=== PATIENT | female | born 1955 | race American Indian/Alaskan Native ===

== ENCOUNTER 2019-02-16 15:40 | Emergency (ER) | payer MEDICAID ==
[2019-02-16] MEDS ORDERED: ATIVAN IM PRN (15:44)
[2019-02-16] MEDS ORDERED: HALDOL IM PRN (15:44)
--- NOTE | 2019-02-16 16:18 | Emergency Department Report ---
ED General Adult HPI - General Chief complaint: Psych Stated complaint: MH Time Seen by Provider: 02/16/19 15:43 Source: family, RN notes reviewed, old records reviewed Mode of arrival: Ambulatory Limitations: Other (patient is actively psychotic) - History of Present Illness Initial comments: This is a 63-year-old female with a history of psychosis. The patient is brought to the emergency room by a local [facility], Ms. Gloria Calvillo; [phone] As per the aforementioned local [facility], patient was seen on the street, walking, asking for cigarettes. Ms. Castro had the patient in her car, and took her to her living facility, but the patient was disorganized, yelling incomprehensibly. The patient was then brought to the emergency room for further evaluation. Initially upon arrival, the patient is yelling and screaming, and talking nonsensically. She was yelling "I have no name". The patient clearly did not exhibit decision- making capacity, and clearly met criteria for 1013 hold for presumed decompensated psychosis. The patient was medicated with Haldol and Ativan, and subsequently calmed down. She is now resting comfortably, in her stretcher, and in no acute distress. She is not able to describe exacerbating or relieving factors, or answer questions about her review of systems. -: unknown Consistency: other Improves with: other Worsens with: other Associated Symptoms: other ED Review of Systems ROS: Stated complaint: MH Other details as noted in HPI Comment: Unobtainable due to pts medical conditions ED Physical Exam - General Limitations: Other (patient actively psychotic. Yelling and screaming.) General appearance: alert, anxious - Head Head exam: Present: atraumatic, normocephalic - Eye Eye exam: Present: normal appearance, EOMI - ENT ENT exam: Present: normal exam, normal orophraynx, mucous membranes moist, normal external ear exam - Neck Neck exam: Present: normal inspection, full ROM. Absent: tenderness, meningismus - Respiratory Respiratory exam: Present: normal lung sounds bilaterally. Absent: respiratory distress - Cardiovascular Cardiovascular Exam: Present: regular rate, normal rhythm, normal heart sounds. Absent: bradycardia, tachycardia, irregular rhythm, systolic murmur, diastolic murmur, rubs, gallop - GI/Abdominal GI/Abdominal exam: Present: soft. Absent: distended, tenderness, guarding, rebound, rigid, pulsatile mass - Extremities Exam Extremities exam: Present: normal inspection, full ROM, pedal edema, other (2+ pulses noted in the bilateral upper, lower extremities. Compartments soft. No long bony tenderness. The pelvis is stable.). Absent: calf tenderness - Back Exam Back exam: Present: normal inspection, full ROM. Absent: tenderness, CVA tenderness (R), CVA tenderness (L), paraspinal tenderness, vertebral tenderness - Neurological Exam Neurological exam: Present: other (there is no facial droop. The tongue is midline. Speaking in full sentences. syntax nonsensical. 5 out of 5 strength in for 70s.) - Psychiatric Psychiatric exam: Present: agitated, anxious - Skin Skin exam: Present: warm, dry, intact, normal color. Absent: rash ED Course Vital Signs 02/16/19 17:14 Temperature 97.5 F L Pulse Rate 83 Respiratory 18 Rate Blood Pressure 103/51 [Right] O2 Sat by Pulse 94 Oximetry - Reevaluation(s) Reevaluation #1: 02/16/19 17:45 Differential diagnosis, including not limited to: Psychosis, schizophrenia, mood disorder Assessment and plan: 63-year-old female with obvious and evident psychosis. The patient is decompensated and does not exhibit decision-making capacity. The patient furthermore demonstrates evidence that she is not able to care for herself. Therefore, she is placed on a 1013. Screening laboratory studies show minimal hypokalemia, minimal hypomagnesemia. She will be given repletion of both of the aforementioned. A psychiatric consultation has been requested. A urinalysis is pending at this time. 02/16/19 17:49 Reevaluation #2: 02/16/19 19:19 Urinalysis reviewed and appreciated. Patient resting comfortably. Patient in no acute distress. Patient is medically suitable for psychiatric consultation, placement and evaluation at this time. She does not appear to have an immediate medical contraindications for psychiatric placement at this time. ED Medical Decision Making - Lab Data Result diagrams: 02/16/19 18:00 02/16/19 16:26 Vital Signs 02/16/19 17:14 Temperature 97.5 F L Pulse Rate 83 Respiratory 18 Rate Blood Pressure 103/51 [Right] O2 Sat by Pulse 94 Oximetry Lab Results 02/16/19 02/16/1902/16/19 Range/Units 16:26 16:26 16:26 Sodium 143 (137-145) mmol/L Potassium 2.7 L* (3.6-5.0) mmol/L Chloride 104.0 (98-107) mmol/L Carbon Dioxide 20 L (22-30) mmol/L Anion Gap 22 mmol/L BUN 10 (7-17) mg/dL Creatinine 0.8 (0.7-1.2) mg/dL Estimated GFR > 60 ml/min BUN/Creatinine Ratio 13 % Glucose 174 H (65-100) mg/dL Calcium 8.9 (8.4-10.2) mg/dL Magnesium (1.7-2.3) mg/dL Total Creatine Kinase (30-135) units/L Acetaminophen < 5.0 L (10.0-30.0) ug/mL Plasma/Serum Alcohol < 0.01 (0-0.07) % 02/16/19 Range/Units 16:26 Sodium (137-145) mmol/L Potassium (3.6-5.0) mmol/L Chloride (98-107) mmol/L Carbon Dioxide (22-30) mmol/L Anion Gap mmol/L BUN (7-17) mg/dL Creatinine (0.7-1.2) mg/dL Estimated GFR ml/min BUN/Creatinine Ratio % Glucose (65-100) mg/dL Calcium (8.4-10.2) mg/dL Magnesium 1.60 L (1.7-2.3) mg/dL Total Creatine Kinase 682 H (30-135) units/L Acetaminophen (10.0-30.0) ug/mL Plasma/Serum Alcohol (0-0.07) % - EKG Data -: EKG Interpreted by Co EKG shows normal: sinus rhythm Rate: normal - EKG Data 02/16/19 17:43 EKG today shows a sinus rhythm, 85 beats per minute, normal axis, QTC prolonged, left ventricular hypertrophy, nonspecific ST abnormality in the inferior leads, no endorsement of chest pain, this is not a STEMI, there is no prior EKG available for comparison. - Radiology Data Radiology results: pending, report reviewed, image reviewed Noncontrast CT scan of the brain is negative for acute disease. Critical care attestation.: If time is entered above; I have spent that time in minutes in the direct care of this critically ill patient, excluding procedure time. ED Disposition Clinical Impression: Psychosis Qualifiers: Psychosis type: other Qualified Code(s): F28 - Other psychotic disorder not due to a substance or known physiological condition Disposition: DC/TX-65 PSY HOSP/PSY UNIT Is pt being admited?: No Does the pt Need Aspirin: No Condition: Stable Referrals: PRIMARY CARE, [Primary Care Provider] - 3-5 Days
[2019-02-16 17:03] LABS: BUN/Creatinine Ratio 13; Blood Urea Nitrogen 10 mg/dL (7-17); Calcium 8.9 mg/dL (8.4-10.2); Hemolysis Index 11
--- NOTE | 2019-02-16 17:04 | Cat Scan Report ---
PROCEDURE: CT HEAD/BRAIN WO CON TECHNIQUE: Computerized tomography of the head was performed without contrast material. CT DOSE LENGTH PRODUCT: 805.4 mGycm HISTORY: Medical Clearance Psych COMPARISONS: None . FINDINGS: Skull and scalp: Normal . Paranasal sinuses: Normal . Ventricles and subarachnoid spaces: Normal . Cerebrum: No evidence of hemorrhage, acute infarction or mass . Cerebellum and brainstem: No evidence of hemorrhage, acute infarction or mass . IMPRESSION: Normal Examination . This document is electronically signed by Lionel Pascula MD., February 16 2019 06:01:52 PM ET
[2019-02-16] MEDS ORDERED: K-DUR PO ONE (17:42)
[2019-02-16 18:08] LABS: Hematocrit 31.7 % (30.3-42.9); Hemoglobin 10.9 gm/dl (10.1-14.3); Mean Corpuscular HGB Conc 34 % (30-34); Mean Corpuscular Volume 100 fl (79-97); Platelet Count 132 K/mm3 (140-440); Red Blood Count 3.16 M/mm3 (3.65-5.03); Red Cell Distribution Width 15.4 % (13.2-15.2)
[2019-02-16 19:02] LABS: Bilirubin,Urine NEG (Negative); Blood,Urine SM (Negative); Color,Urine Yellow (Yellow); Mucus,Urine 2+ /HPF
[2019-02-16 19:07] LABS: Amphetamine Screen,Urine PRESUMPTIVE NEGATIVE; Benzodiazepines Screen,Urine PRESUMPTIVE NEGATIVE; Cannabinoid Screen,Urine PRESUMPTIVE NEGATIVE; Cocaine Screen,Urine PRESUMPTIVE NEGATIVE; Methadone Screen,Urine PRESUMPTIVE NEGATIVE; Opiate Screen,Urine PRESUMPTIVE NEGATIVE
[2019-02-17] MEDS: MAG-OX PO SCH ×2 (01:00→11:18)
[2019-02-17] MEDS: K-DUR PO SCH ×2 (01:00→10:51)
[2019-02-17] MEDS ORDERED: BABY ASPIRIN ONE (01:06)
[2019-02-17] MEDS ORDERED: BABY ASPIRIN PO ONE (04:05)
[2019-02-17] MEDS ORDERED: NACL 0.9% 1000 ML IV ONE (04:26)
[2019-02-18] MEDS: MAG-OX PO SCH (11:00)
[2019-02-18] MEDS: K-DUR PO SCH (11:00)
--- NOTE | 2019-02-18 13:19 | Consultation ---
History of Present Illness - Reason for Consult Consult date: 02/18/19 Reason for consult: Mental Healt Evaluation Requesting physician: LUCI SILVESTRE - Chief Complaint Chief complaint: 'I want a cigarette" - History of Present Psychiatric Illness 63 y.o. AA art who presented to ER for bizarre behavior. The patient was brought in by a local [facility], . Gloria Calvillo; [phone]. The patient have been to this ER in the past for similar behavior. Today the patient was disorganized during the assessment. She is adamant that she want a cigarette and that's why she was brought to the ER. She was asked about her mental health overall, her responses were not logical. She would not confirm or deny AH's, but denies SI/HI's and VH's. At this time, the patient isn't a good historian. Medications and Allergies Allergies Allergy/AdvReac Type Severity Reaction Status Date / Time No Known Allergies Allergy Unverified 02/16/19 19:33 Active Meds: Active Medications Haloperidol Lactate (Haldol) 5 mg IM Q6HR PRN PRN Reason: Agitation Last Admin: 02/16/19 15:51 Dose: 5 mg Documented by: Lorazepam (Ativan) 2 mg IM Q4HR PRN PRN Reason: Agitation Last Admin: 02/16/19 15:51 Dose: 2 mg Documented by: Magnesium Oxide (Mag-Ox) 400 mg PO QDAY [facility] Stop: 03/02/19 10:01 Last Admin: 02/18/19 11:00 Dose: 400 mg Documented by: Potassium Chloride (K-Dur) 40 meq PO QDAY [facility] Stop: 03/02/19 10:01 Last Admin: 02/18/19 11:00 Dose: 40 meq Documented by: Past psychiatric history - Past Medical History Past Medical History: other (Unable to obtain ) Past Surgical History: Other (Unable to obtain ) - past Psychiatric treatment and history psychiatric treatment history: Several inpatient psy setting in the past. Unable to obtain a fam psy hx. - Social History Social history: other (Unable to obtain ) Mental Status Exam - Vital signs Last Vital Signs Temp 97.8 F 02/18/19 04:21 Pulse 88 02/18/19 04:21 Resp 20 02/18/19 04:21 BP 126/82 02/18/19 04:21 Pulse Ox 98 02/18/19 04:21 - Exam Narrative exam: MSE: Appearance: calm Behavior: poor eye contact Speech: regular rate and tone Mood: "okay" Affect: flat Thought Process: disorganized Thought Content: denies SI/HI's and VH's, delusional Motor Activity: ambulatory Cognition: A/O x3 Insight: poor Judgment: poor Results Result Diagrams: 02/16/19 18:00 02/17/19 Unknown Abnormal lab results 02/18/19 Range/Units 08:07 Total Creatine Kinase 653 H (30-135) units/L All other labs normal. Assessment and Plan Assessment and plan: Impression: Unspecified Psychosis. Today the patient is calm, but disorganized during the assessment. UDS is negative. CK is trending down. DDx: Bipolar DO with psychosis, Schizophrenia Recommendation/Plan: Continue 1013 and Zyprexa 2.5 mg PO HS for psychosis. Attempted to discuss possible metabolic side effects of Zyprexa with the patient. Dispo: The patient was referred to inpatient psy services. Staffed with Dr Andrews Arias.
[2019-02-19 08:17] VITALS: BP 141/57
--- NOTE | 2019-02-19 10:10 | Progress Note ---
Subjective - Reason for Consult Consult date: 02/19/19 Reason for consult: Psychiatry Follow-up - Chief Complaint Chief complaint: '"I want something to smoke" 63 y.o. AA female who presented to ER for bizarre behavior. Today the patient was calm, but preoccupied during the assessment. The patient had to be redirected several times to keep her on topic. She appears to be responding to some type of stimuli. No gestures of SI/HI's. No indications of side effects of her medication. Mental Status Exam - Vital signs Last Vital Signs Temp 99 F 02/19/19 08:16 Pulse 70 02/19/19 08:16 Resp 20 02/19/19 08:16 BP 141/57 02/19/19 08:16 Pulse Ox 100 02/19/19 08:16 - Exam Narrative exam: MSE: Appearance: calm Behavior: poor eye contact Speech: regular rate and tone Mood: preoccupied Affect: congruent to mood Thought Process: tangential Thought Content: denies SI/HI's, responding to some type of stimuli Motor Activity: ambulatory Cognition: A/O x3 Insight: poor Judgment: poor Assessment and Plan Impression: Unspecified Psychosis. Today the patient was calm, but preoccupied during the assessment. UDS is negative. . DDx: Bipolar DO with psychosis, Schizophrenia Recommendation/Plan: Continue 1013 and Zyprexa 2.5 mg PO HS for psychosis. Attempted to discuss possible metabolic side effects of Zyprexa with the patient. Dispo: The patient was accepted at [facility] for inpatient psy services. Will staff with Dr Andrews Arias.
[2019-02-19] MEDS: K-DUR PO SCH (10:23)
[2019-02-19] MEDS: MAG-OX PO SCH (10:23)
== END 2019-02-19 12:15 ==
LOC: ED 15:40 → EEVIPCON 15:40 → ED 02-19 12:15
DX: F29 Unspecified psychosis not due to a substance or known physiological condition (principal)
CPT/HCPCS: 36415; 70450; 80048; 80307; 81001; 82550; 83735; 84132; 85027; 93005; 93010; 96372; 99285; G0480; J1630; J2060; J7030; 80320